=== PATIENT | male | born 1970 | race African-American/Black ===

== ENCOUNTER → 2016-11-25 | Outpatient (CLI) | payer MEDICARE, MEDICAID ==
[~2016-11-25] MED LIST: ACTOS 15MG TAB15 MG PO; AMITRIPTYLINE H50 M1 PO; ASPIRIN 32325 MG/TAB PO; BYSTOLIC20 MG PO; COREG 3.123.125 MG/T PO; DESYREL 50MG50 MG PO; DIABETA 2.5MG2.5 MG PO; FOLIC ACID 11 MG/TA1 PO; GLUCOPHAGE XR500 M1 PO; GLUCOPHAGE500 MG/TAB PO; GLUCOTROL 5M5 MG/TAB PO; HCTZ 25MG TAB25 MG PO; HYGROTON25 MG PO; HYTRIN 2MG CAPSU2 MG PO; LANTUS100 U/ML SQ; LASIX 20MG TABL20 MG PO; LEVAQUIN 5500 MG/TA1 PO; LEVAQUIN 750MG750 M1 PO; NEPHROCAP PO; NEURONTIN100 MG/CAP PO; NEURONTIN300 MG/CAP PO; NEUT; NORCO 325 MG-51 TAB PO; NORCO 325 MG-7.1 TAB PO; NORVASC 5MG5 MG/TAB PO; PHOSLO667 MG PO; POTASSIUM PO; PRAVACHOL 20MG20 MG PO; PRAVASTATIN; PRINIVIL5 MG PO; ROLAIDS220 M1 PO; SENSIPAR30 MG PO; TUMS 500500 MG PO; TUSS PO; VASOTEC20 MG PO; VITAMIN C500 MG PO; ZAROXOLYN 2.52.5 MG PO; ZESTRIL40 MG PO; ZOCOR5 MG
[2016-11-25 09:45] LABS: PH 9 (5-8); SQUAMOUS EPITHELIAL 0-2 /hpf; URINE APPEARANCE Clear; URINE BACTERIA Rare /hpf; URINE BILIRUBIN Negative (NEGATIVE); URINE BLOOD 1+ (NEGATIVE); URINE COLOR Straw; URINE GLUCOSE 2+ (NEGATIVE); URINE KETONE Negative (NEGATIVE); URINE UROBILINOGEN Negative (NEGATIVE)
== END ==
LOC: COL.RAD 08:44
PROVIDERS: Internal Medicine
DX: M54.9 Dorsalgia, unspecified (principal)

== ENCOUNTER 2017-02-25 13:45 | Observation (INO) | payer MEDICARE, MEDICAID ==
[~2017-02-25] VITALS: Ht 185.4 cm; Wt 126.0 kg
[~2017-02-25 13:45] MED LIST changes: -DESYREL 50MG50 MG PO; -NORCO 325 MG-7.1 TAB PO; -SENSIPAR30 MG PO
[2017-02-25] MEDS ORDERED: DESYREL 50MG50 MG PO (13:58)
[2017-02-25 15:20] LABS: BASO % 0.4 % (0.0-2.0); EOS % 0.4 % (0-4.0); GRAN # 6.3 (1.4-6.5); GRAN % 75.3 % (42.2-75.2); LYMPH # 1.1 (1.2-3.4); LYMPH % 13.3 % (20.0-51.0); MEAN CELL VOLUME 93 fl (80.0-100.0); MEAN CORPUSCULAR HGB CONC 35 g/dl (33.0-37.0); MEAN PLATELET VOLUME 9.8 fl (7.4-10.4); MONO # 0.9 (0.1-0.6); MONO % 10.4 % (1.7-9.3); PLATELET COUNT 211 K/mm3 (130-400); RED BLOOD COUNT 2.74 M/mm3 (4.20-5.60); WHITE BLOOD COUNT 8.4 K/mm3 (4.8-10.8)
[2017-02-25 15:28] LABS: HEMATOCRIT 25.6 % (42.0-52.0); MEAN CORPUSCULAR HEMOGLOBIN 33 pg (27.0-31.0)
[2017-02-25 15:32] LABS: ALBUMIN 4.1 gm/dL (3.5-5.0); BILIRUBIN,TOTAL 0.9 mg/dL (0.0-1.0); CALCIUM 9.1 mg/dL (8.4-10.2); POTASSIUM 4.6 mmol/L (3.4-5.0); TOTAL PROTEIN 7.9 gm/dL (6.4-8.2)
[2017-02-25 15:45] LABS: CREATININE, serum 8.53 mg/dL (0.66-1.25)
[2017-02-25 16:01] LABS: C-REACTIVE PROTEIN 5.9 mg/dL (0.0-0.9)
[2017-02-25 21:40] VITALS: BP 155/66; PULSE 68; TEMP 97.9
[2017-02-25 21:55] VITALS: BP 137/64; PULSE 70
[2017-02-25 22:10] VITALS: BP 144/79; PULSE 68
[2017-02-25 22:25] VITALS: BP 131/80; PULSE 69
[2017-02-25 22:55] VITALS: BP 154/89; PULSE 67
[2017-02-25 23:25] VITALS: BP 158/84; PULSE 67
[2017-02-26 00:25] VITALS: BP 158/85; PULSE 65
[2017-02-26 01:25] VITALS: BP 150/84; PULSE 65
[2017-02-26 06:34] VITALS: BP 159/80; PULSE 65; TEMP 97.9
[2017-02-26 09:29] VITALS: BP 167/87; PULSE 66; TEMP 97.9
[2017-02-26] MEDS ORDERED: NORCO 325 MG-7.1 TAB PO (11:39)
== END 2017-02-26 11:45 | disposition home or self-care (01) ==
LOC: COL.ER 13:45 → SURG 18:49
PROVIDERS: Family Medicine
DX: K35.80 Unspecified acute appendicitis (principal); E78.5 Hyperlipidemia, unspecified; E11.40 Type 2 diabetes mellitus with diabetic neuropathy, unspecified; D64.9 Anemia, unspecified; I13.2 Hypertensive heart and chronic kidney disease with heart failure and with stage 5 chronic kidney disease, or end stage renal disease; E11.22 Type 2 diabetes mellitus with diabetic chronic kidney disease; N18.6 End stage renal disease; I50.9 Heart failure, unspecified; Z95.828 Presence of other vascular implants and grafts; Z99.2 Dependence on renal dialysis
CPT/HCPCS: A9284; G0378; J1100; J1170; J1885; J2270; J2310; J2405; J2543; J2704; J7030; J7050

== ENCOUNTER 2017-04-10 10:11 | Emergency (ER) | payer MEDICARE, MEDICAID ==
[~2017-04-10] VITALS: Ht 185.4 cm; Wt 125.0 kg
[~2017-04-10 10:11] MED LIST changes: +DESYREL 50MG50 MG PO; +NORCO 325 MG-7.1 TAB PO
[2017-04-10] MEDS ORDERED: SENSIPAR30 MG PO (10:23)
[2017-04-10] MEDS ORDERED: BYSTOLIC20 MG PO (10:23)
[2017-04-10] MEDS ORDERED: NORCO 325 MG-51 TAB PO (10:58)
[2017-04-10 11:01] VITALS: BP 141/88; PULSE 69; TEMP 98
== END 2017-04-10 11:06 | disposition home or self-care (01) ==
LOC: COL.ER 10:11
DX: K02.9 Dental caries, unspecified (principal); R68.84 Jaw pain; E11.22 Type 2 diabetes mellitus with diabetic chronic kidney disease; I12.9 Hypertensive chronic kidney disease with stage 1 through stage 4 chronic kidney disease, or unspecified chronic kidney disease; N18.9 Chronic kidney disease, unspecified; Z99.2 Dependence on renal dialysis; Z79.84 Long term (current) use of oral hypoglycemic drugs

== ENCOUNTER → 2017-05-12 | Outpatient (CLI) | payer MEDICARE, MEDICAID ==
[~2017-05-12] MED LIST changes: +SENSIPAR30 MG PO
== END ==
LOC: COL.RAD 14:37
DX: S09.90XA Unspecified injury of head, initial encounter (principal); M54.2 Cervicalgia; R07.81 Pleurodynia; R10.11 Right upper quadrant pain; V89.2XXA Person injured in unspecified motor-vehicle accident, traffic, initial encounter; M47.812 Spondylosis without myelopathy or radiculopathy, cervical region; R91.8 Other nonspecific abnormal finding of lung field
CPT/HCPCS: Q9967

== ENCOUNTER → 2017-07-17 | Outpatient (CLI) | payer MEDICARE, MEDICAID ==
[~2017-07-17] MED LIST changes: +AMBIEN 10MG10 MG PO; +FLEXERIL 1010 MG/TAB PO; +SODIUM BICARBO650 MG PO
== END ==
LOC: COL.RAD 11:07
DX: N28.9 Disorder of kidney and ureter, unspecified (principal)